=== PATIENT | female | born 1980 | race African-American/Black ===

== ENCOUNTER 2017-10-26 14:08 | Emergency (ER) | payer MEDICAID | END 2017-10-26 16:57 | disposition home or self-care (01) | LOC: D.ER 14:08 | DX: J20.9 Acute bronchitis, unspecified (principal); J06.9 Acute upper respiratory infection, unspecified; F17.200 Nicotine dependence, unspecified, uncomplicated ==

== ENCOUNTER → 2019-06-13 08:49 | Outpatient (CLI) | payer MEDICAID ==
[2019-06-13 09:10] LABS: BASOPHILS 0.5 % (0-2); EOSINOPHILS 1.6 % (0-7); HEMATOCRIT 25.4 % (36.0-48.0); HEMOGLOBIN 7.7 g/dL (12-16); IMMATURE GRANULOCYTES 0.7 % (0-5); LYMPHOCYTES 44.4 % (15-50); MCHC 30.3 g/dL (31.0-37.0); MCV 65.3 fL (80.0-100.0); MONOCYTES 8.8 % (2-11); PLATELET COUNT 150 10x3/uL (130-400); RBC 3.89 10x6/uL (4.00-5.40); RDW 19.4 % (11.5-14.5); WBC 5.8 10x3/uL (4.8-10.8)
[2019-06-13 09:13] LABS: MCH 19.8 pg (26.0-34.0)
[2019-06-13 09:39] LABS: PLATELET ESTIMATE NORMAL
[2019-06-13 09:40] LABS: HYPOCHROMASIA 1+
== END | disposition home or self-care (01) ==
LOC: D.LAB 08:49 → D.CT 09:30
PROVIDERS: ATTEND Internal Medicine Gastroenterology
DX: R10.31 Right lower quadrant pain (principal); R11.2 Nausea with vomiting, unspecified; K92.1 Melena

== ENCOUNTER → 2019-06-29 09:49 | Outpatient (CLI) | payer MEDICAID | END | disposition home or self-care (01) | LOC: D.RAD 09:49 | PROVIDERS: ATTEND Internal Medicine Gastroenterology | DX: D64.9 Anemia, unspecified (principal) ==

== ENCOUNTER → 2019-07-19 09:02 | Outpatient (CLI) | payer MEDICAID ==
[2019-07-20 10:11] LABS: IMMUNOGLOBULIN A 227 mg/dL (87-352); IMMUNOGLOBULIN G 1818 mg/dL (700-1600); IMMUNOGLOBULIN M 224 mg/dL (26-217)
[2019-07-22 13:20] LABS: IMMUNOGLOBULIN E 120 IU/mL (6-495)
== END | disposition home or self-care (01) ==
LOC: D.RT 09:00
PROVIDERS: ATTEND Internal Medicine Pulmonary Disease
DX: J45.909 Unspecified asthma, uncomplicated (principal)

== ENCOUNTER → 2019-07-30 10:59 | Outpatient (CLI) | payer MEDICAID | END | disposition home or self-care (01) | LOC: D.RT 10:59 | PROVIDERS: ATTEND Internal Medicine Pulmonary Disease | DX: J45.909 Unspecified asthma, uncomplicated (principal) ==